=== PATIENT | male | born 1995 | race Caucasian/White ===

== ENCOUNTER 2025-01-18 17:02 | Emergency (ER) | payer OTHER, SELFPAY ==
[2025-01-18 17:09] VITALS: BP 136/79
[2025-01-18 17:26] LABS: Glucose - Point of Care 98 mg/dl (70-99)
[2025-01-18 17:35] LABS: Hematocrit 43.3 % (39.0-52.0); Hemoglobin 15.8 g/dL (13.0-18.0); Mean Corp Hgb Conc. 36.5 g/dL (33.0-37.0); Mean Corpuscular Volume 86.1 fL (80.0-94.0); Nucleated Red Blood Cells % 0 % (-); Platelet Count 163 10^3/uL (130-400); Red Cell Dist. Width 11.9 % (11.5-14.5)
[2025-01-18 17:54] LABS: ALT (SGPT) 31 U/L (0-50); AST (SGOT) 29 U/L (17-59); Albumin 5.1 g/dl (3.5-5.0); Alkaline Phosphatase 65 U/L (38-126); Blood Urea Nitrogen 20 mg/dl (9-20); Calcium 9.3 mg/dl (8.4-10.2); Carbon Dioxide 28 mmol/L (22-30); Chloride 99 mmol/L (98-107); Glucose 90 mg/dl (70-99); Potassium 4.2 mmol/L (3.5-5.1); Sodium 134 mmol/L (135-145); Total Protein 7.6 g/dl (6.3-8.2); eGFR > 60.00
[2025-01-18 17:59] LABS: Troponin I < 0.012 ng/ml
[2025-01-18 20:05] VITALS: BP 119/68
--- NOTE | 2025-01-18 20:44 | ED.GENMED ---
History of Present Illness
General
Chief Complaint: Fainting Sensation
Source: patient and family
Time Seen by Provider: 01/18/25 20:43
History of Present Illness
History of Present Illness:
29-year-old male presents to the emergency room after having an admitted home where he thought he might pass out. He was on a conference call when he developed a warm sensation running from his neck up to his back of his head and forehead. He felt
like he might pass out. He left the room to go lay down. He was observed to have discoloration of his lips. He did not actually pass out. He eventually began feeling back to normal though he had some paresthesias of his left foot. Currently he
feels back to baseline essentially. Patient had 1 syncopal episode when he was around 10. He believes today's event was reminiscent of that. He denies any chest pain or shortness of breath.
Past History
Social History
Employment: Student
Phy Exam
Physical Exam
Physical Exam:
General: Awake, Alert, Oriented X3. No acute distress.
Vitals: unremarkable
Head: Atraumatic
Eyes: Pupils equal, EOMI
Throat: Airway intact, no exudates
Neck: Trachea midline
Lungs: Clear and equal b/l
Heart: Regular rate, no murmurs
Abd: Soft, Nontender, No pulsatile mass
Neuro: Cranial nerves intact, muscle strength equal bilaterally, cerebellar exam normal
Skin: Warm, dry, no rash
Extremities: pulses equal b/l, no edema
Course
Orders/Labs/Results
Orders:
Orders
01/18/25 17:03
Electrocardiogram (*1) Urgent
Reason for Study: Syncope
01/18/25 17:04
EKG- Treatment ONCE
01/18/25 17:28
Complete Blood Count/With Diff Urgent
Comprehensive Metabolic Panel Urgent
Troponin I Urgent
Abnormal Lab Results
01/18/25
17:28
MCH 31.4 H pg
(27.0-31.0)
Lymphocytes % 18.1 L %
(20.5-51.1)
Sodium 134 L mmol/L
(135-145)
Total Bilirubin 2.3 H mg/dl
(0.2-1.3)
Albumin 5.1 H g/dl
(3.5-5.0)
01/18/25 17:28
01/18/25 17:28
Vital Signs
Initial and Last Documented VS:
Initial Vital Signs
Temp Pulse Resp BP Pulse Ox
97.8 F 59 18 136/79 99
01/18/25 17:09 01/18/25 17:09 01/18/25 17:09 01/18/25 17:09 01/18/25 17:09
Last Documented Vital Signs
Temp Pulse Resp BP Pulse Ox
97.8 F 70 25 128/83 97
01/18/25 17:09 01/18/25 21:00 01/18/25 21:00 01/18/25 21:00 01/18/25 21:00
MDM/Problems Addressed
Differential Diagnosis Includes:
Vasovagal event, dysrhythmia, anxiety
MDM/Problems Addressed:
He presents after feeling dizzy, sensation like he might pass out. Physical exam here is benign. EKG is normal. Labs are unremarkable. Patient likely had a vasovagal type event. Recommend hydration, rest. For discharge and outpatient follow-up
*Pulse Oximetry
SaO2: 99
Oxygen Mode of Delivery: Room air
Patient hypoxic: no
*EKG
Interpreted by ED Provider?: Yes
Interpretation: abnormal
Comparison EKG: no comparison EKG present
Heart Rate: 56
Rate: bradycardiac
Rhythm: sinus
Tyner: normal axis
Interval: normal interval
QRS Pattern: normal QRS
Ischemia: no ischemia
*Internal Salesperson Interpretation
Rate: bradycardiac
Interpretation: abnormal
Rhythm: sinus
*Critical Care Note
Total Time (30-74mins, 75-104mins- exclusive of procedures): Not Applicable
ED Attending Note
-
Portions of this chart may have been created with voice recognition software.� Occasional wrong word or��sound alike� substitutions may have occurred due to the inherent limitations of voice recognition software.
Discharge Plan
Departure
Patient Disposition: Home (Routine Discharge)
Date of Disposition: 01/18/25
Time of Disposition: 21:04
Patient with high blood pressure during this ER visit?: No
Condition: Good
Discharge Problem:
Vasovagal episode
Instructions: Near Fainting (DC)
Interventions
Interventions:
*Risk Screen - Suicide Last Done: 01/18/25 17:09
*General Assessment Last Done: 01/18/25 17:09
*Neglect/Abuse Screening Last Done: 01/18/25 20:50
*ED- Fall Risk Assessment Last Done: 01/18/25 20:50
*ED COVID-19 Vaccine History Last Done: 01/18/25 17:09
*Nursing Disposition Last Done: 01/18/25 21:06
ED- Cardiac Assessment Last Done: 01/18/25 20:50
ED- Neurological Assessment Last Done: 01/18/25 20:50
Discharge Date and Time
Discharge Date/Time: 01/18/25 21:27
Print Language: KOREAN
[2025-01-18 20:49] VITALS: BMI 29.9
[2025-01-18 21:00] VITALS: BP 128/83
== END 2025-01-18 21:27 | disposition home or self-care (01) ==
LOC: EMR 17:02
PROVIDERS: Emergency Medicine; EMERGENCY PHYSICIAN Emergency Medicine; FAMILY PHYSICIAN Family Medicine
DX: R55 Syncope and collapse (principal)
CPT/HCPCS: 99284; 80053; 82962; 84484; 85025; 93005